=== PATIENT | female | born 1980 | race Caucasian/White ===

== ENCOUNTER 2017-04-17 10:54 | Emergency (ER) | payer MEDICAID ==
[~2017-04-17] VITALS: Ht 162.6 cm; Wt 74.0 kg
[~2017-04-17 10:54] MED LIST: CLIN-79 PO; IBUP-1986 PO; NO HOME MEDS
[2017-04-17 11:47] LABS: BASOPHILS # (AUTO) 0.1 X10'3 (0-0.2); BASOPHILS % (AUTO) 0.8 % (0-1); EOSINOPHILS # (AUTO) 0.2 X10'3 (0-0.9); EOSINOPHILS % (AUTO) 1.6 % (0-6); HEMATOCRIT 30.4 % (35.0-45.0); HEMOGLOBIN 10.7 g/dl (12.0-16.0); LYMPHOCYTES # (AUTO) 2.3 X10'3 (1.1-4.8); LYMPHOCYTES % (AUTO) 16.9 % (21-51); MEAN CORPUSCULAR HEMOGLOBIN 28.8 PG (27.0-31.0); MEAN CORPUSCULAR HGB CONC 35.2 % (33.0-36.5); MEAN CORPUSCULAR VOLUME 81.9 FL (78-98); MEAN PLATELET VOLUME 7.9 FL (7.4-10.4); MONOCYTES # (AUTO) 0.6 X10'3 (0-0.9); MONOCYTES % (AUTO) 4.5 % (2-12); NEUTROPHILS # (AUTO) 10.4 X10'3 (1.8-7.7); NEUTROPHILS % (AUTO) 76.2 % (42-75); PLATELET COUNT 378 X10'3 (140-440); RED BLOOD COUNT 3.72 X10'6 (4.20-5.60); RED CELL DISTRIBUTION WIDTH 14.8 % (11.5-14.5); WHITE BLOOD COUNT 13.7 X10'3 (4.5-11.0)
[2017-04-17] MEDS ORDERED: CEPH-571 PO (11:54)
[2017-04-17 12:09] LABS: ALANINE AMINOTRANSFERASE 36 U/L (12-78); ALBUMIN 2.4 G/DL (3.4-5.0); ALBUMIN/GLOBULIN RATIO 0.5 (1.1-1.5); ALKALINE PHOSPHATASE 189 IU/L (46-116); ANION GAP 9 (8-16); ASPARTATE AMINO TRANSFERASE 69 U/L (10-37); BILIRUBIN,TOTAL 0.3 MG/DL (0.1-1.0); BLOOD UREA NITROGEN 12 MG/DL (7-18); CALCIUM 8.6 MG/DL (8.5-10.1); CHLORIDE 105 MMOL/L (99-107); GLUCOSE 110 MG/DL (70-104); POTASSIUM 4.4 MMOL/L (3.5-5.1); SODIUM 140 MMOL/L (135-145); TOTAL CARBON DIOXIDE 25.6 MMOL/L (24-32); eGFR 81 ML/MIN
[2017-04-17 12:29] VITALS: BP 150/83
== END 2017-04-17 12:00 | disposition home or self-care (01) ==
LOC: ER 10:54
DX: F15.10 Other stimulant abuse, uncomplicated (principal); D64.9 Anemia, unspecified; D72.829 Elevated white blood cell count, unspecified; Z91.011 Allergy to milk products
CPT/HCPCS: 36415; 80053; 85025; 99284

== ENCOUNTER 2018-10-15 03:38 | Emergency (ER) | payer MEDICAID ==
[~2018-10-15] VITALS: Ht 162.6 cm; Wt 62.7 kg
[~2018-10-15 03:38] MED LIST changes: +CEPH-571 PO; -CLIN-79 PO; +CLIN150C8 PO
[2018-10-15 03:44] VITALS: BP 110/68
[2018-10-15] MEDS ORDERED: naproxen 500mg tablet PO ONE (05:00)
[2018-10-15] MEDS ORDERED: NAPR-56 PO (05:04)
== END 2018-10-15 05:58 | disposition home or self-care (01) ==
LOC: ER 03:39
DX: M72.2 Plantar fascial fibromatosis (principal); M79.671 Pain in right foot; Z88.2 Allergy status to sulfonamides; Z91.011 Allergy to milk products; Z79.899 Other long term (current) drug therapy
CPT/HCPCS: 73630; 99283

== ENCOUNTER 2020-07-06 15:32 | Emergency (ER) | payer MEDICAID ==
[~2020-07-06] VITALS: Ht 162.6 cm; Wt 65.7 kg
[2020-07-06] MEDS ORDERED: ketorolac tromethamine 15mg/ml inj. IV ONE (16:50)
[2020-07-06 17:33] LABS: BASOPHILS % (AUTO) 0.3 % (0-1); EOSINOPHILS % (AUTO) 0.1 % (0-6); HEMATOCRIT 42.6 % (35.0-45.0); HEMOGLOBIN 14.1 g/dl (12.0-16.0); LYMPHOCYTES # (AUTO) 1.8 X10'3 (1.1-4.8); LYMPHOCYTES % (AUTO) 14.6 % (21-51); MEAN CORPUSCULAR HEMOGLOBIN 30.5 PG (27.0-31.0); MEAN CORPUSCULAR VOLUME 92.3 FL (78-98); MEAN PLATELET VOLUME 8.1 FL (7.4-10.4); MONOCYTES % (AUTO) 8.5 % (2-12); NEUTROPHILS # (AUTO) 9.2 X10'3 (1.8-7.7); NEUTROPHILS % (AUTO) 76.5 % (42-75); PLATELET COUNT 199 X10'3 (140-440); RED BLOOD COUNT 4.62 X10'6 (4.20-5.60); RED CELL DISTRIBUTION WIDTH 13.5 % (11.5-14.5); WHITE BLOOD COUNT 12.1 X10'3 (4.5-11.0)
--- NOTE | 2020-07-06 17:35 | NUR ---
TO CT WITH TECH
[2020-07-06 17:47] LABS: PARTIAL THROMBOPLASTIN TIME 38 SECONDS (22-32)
[2020-07-06 17:51] LABS: ALANINE AMINOTRANSFERASE 10 U/L (12-78); ALBUMIN 3.4 G/DL (3.4-5.0); ALBUMIN/GLOBULIN RATIO 0.9 (1.1-1.5); ALKALINE PHOSPHATASE 77 IU/L (46-116); ANION GAP 10 (8-16); ASPARTATE AMINO TRANSFERASE 12 U/L (10-37); BILIRUBIN,TOTAL 1.1 MG/DL (0.1-1.0); BLOOD UREA NITROGEN 10 MG/DL (7-18); BUN/CREATININE RATIO 13.2 (6.6-38.0); CALCIUM 8.7 MG/DL (8.5-10.1); CHLORIDE 101 MMOL/L (99-107); CREATININE 0.76 MG/DL (0.40-0.90); GLUCOSE 88 MG/DL (70-104); POTASSIUM 3.9 MMOL/L (3.5-5.1); SODIUM 133 MMOL/L (135-145); TOTAL CARBON DIOXIDE 22.4 MMOL/L (24-32); TOTAL PROTEIN 7.4 G/DL (6.4-8.2); eGFR 85 ML/MIN
[2020-07-06 18:27] LABS: HCG SERUM QL NEGATIVE
[2020-07-06 18:28] VITALS: BP 111/59
[2020-07-06] MEDS ORDERED: IBUP-1984 PO (18:48)
== END 2020-07-06 19:13 | disposition home or self-care (01) ==
LOC: ER 15:32
DX: S00.93XA Contusion of unspecified part of head, initial encounter (principal); R51.9 Headache, unspecified; R11.10 Vomiting, unspecified; Z87.440 Personal history of urinary (tract) infections; Z88.2 Allergy status to sulfonamides; Z91.011 Allergy to milk products; Z79.2 Long term (current) use of antibiotics; Z79.899 Other long term (current) drug therapy; W19.XXXA Unspecified fall, initial encounter; Y93.89 Activity, other specified; Y92.89 Other specified places as the place of occurrence of the external cause; Y99.8 Other external cause status
CPT/HCPCS: 36415; 70450; 72125; 80053; 84703; 85025; 85610; 85730; 96374; 99285; J1885; 93005

== ENCOUNTER 2021-08-03 08:49 | Emergency (ER) | payer MEDICAID ==
[~2021-08-03] VITALS: Ht 162.6 cm; Wt 63.6 kg
[2021-08-03 08:53] VITALS: BP 122/59
[2021-08-03] MEDS ORDERED: HYDROcodone/acetaminophen 10/325mg tab PO ONE (10:40)
[2021-08-03] MEDS ORDERED: sulfamethoxazole/trimethoprim DS (800/160mg) tablet PO ONE (10:40)
[2021-08-03] MEDS ORDERED: DOXY150T5 PO (10:44)
[2021-08-03] MEDS ORDERED: DOXYCYCLINE 100MG CAPSULE PO STA (10:45)
== END 2021-08-03 10:56 | disposition home or self-care (01) ==
LOC: ER 08:49
DX: L02.416 Cutaneous abscess of left lower limb (principal); Z87.440 Personal history of urinary (tract) infections; Z88.2 Allergy status to sulfonamides; Z91.011 Allergy to milk products; Z79.2 Long term (current) use of antibiotics; Z79.899 Other long term (current) drug therapy
CPT/HCPCS: 10061; 87070; 87077; 87186; 99284

== ENCOUNTER 2023-09-01 13:29 | Emergency (ER) | payer BC, MEDICAID ==
[~2023-09-01] VITALS: Ht 162.6 cm; Wt 69.3 kg
[~2023-09-01 13:29] MED LIST changes: +CLIN-214 PO; -CLIN150C8 PO
[2023-09-01 13:32] VITALS: BP 112/79; PULSE 104; TEMP 98; O2SAT 95
[2023-09-01 14:02] LABS: BILIRUBIN,URINE NEGATIVE (Neg); CLARITY,URINE TURBID (Clear); COLOR,URINE YELLOW (Yellow); GLUCOSE, URINE NEGATIVE (Neg); KETONES,URINE NEGATIVE (Neg); LEUKOCYTE ESTERASE ,URINE LARGE (Neg); NITRITES, URINE POSITIVE (Neg); OCCULT BLOOD,URINE MODERATE (Neg); PROTEIN,URINE 100 mg/dl (Neg)
[2023-09-01 14:03] LABS: URINE HCG NEGATIVE (NEG)
[2023-09-01 14:09] LABS: UA COLLECTION TYPE CLN CATCH MIDSTREAM
[2023-09-01 14:16] LABS: BACTERIA,URINE 1+ /HPF (Neg); RBC,URINE TNTC /HPF (0-2); SQUAMOUS EPITHELIAL CELL,UR FEW /LPF (FEW); WBC,URINE TNTC /HPF (0-4)
[2023-09-01 14:18] LABS: WBC CLUMPS,URINE MODERATE /HPF (NEGATIVE)
[2023-09-01] MEDS ORDERED: diatr meglu/diatrizoate 30ml oral sol.-(3 dose) bottle ONE (14:33)
[2023-09-01 15:11] VITALS: RESP 14
[2023-09-01 15:20] LABS: BASOPHILS % (AUTO) 0.4 % (0-1); EOSINOPHILS # (AUTO) 0.1 X10'3 (0-0.9); HEMOGLOBIN 15.5 g/dl (12.0-16.0); LYMPHOCYTES # (AUTO) 1.9 X10'3 (1.1-4.8); MEAN CORPUSCULAR HEMOGLOBIN 31.3 PG (27.0-31.0); MEAN CORPUSCULAR HGB CONC 33.7 g/dL (33.0-36.5); MEAN CORPUSCULAR VOLUME 92.8 FL (78-98); MEAN PLATELET VOLUME 8.1 FL (7.4-10.4); MONOCYTES # (AUTO) 0.5 X10'3 (0-0.9); MONOCYTES % (AUTO) 6.5 % (2-12); NEUTROPHILS # (AUTO) 5.2 X10'3 (1.8-7.7); NEUTROPHILS % (AUTO) 68.1 % (42-75); PLATELET COUNT 193 X10'3 (140-440); RED BLOOD COUNT 4.96 X10'6 (4.20-5.60); RED CELL DISTRIBUTION WIDTH 12.5 % (11.5-14.5); WHITE BLOOD COUNT 7.7 X10'3 (4.5-11.0)
[2023-09-01 16:07] LABS: ALANINE AMINOTRANSFERASE 15 U/L (12-78); ALBUMIN 3.9 G/DL (3.4-5.0); ALKALINE PHOSPHATASE 61 IU/L (46-116); ANION GAP 11 (8-16); BILIRUBIN,TOTAL 0.7 MG/DL (0.1-1.0); BLOOD UREA NITROGEN 12 MG/DL (7-18); BUN/CREATININE RATIO 16.7 (10.0-20.0); CALCIUM 9.2 MG/DL (8.5-10.1); CHLORIDE 102 MMOL/L (99-107); CREATININE 0.72 MG/DL (0.40-0.90); GLUCOSE 69 MG/DL (70-104); LIPASE 22 U/L (16-77); SODIUM 137 MMOL/L (135-145); TOTAL CARBON DIOXIDE 24.2 MMOL/L (24-32); eCRCL 88 ML/MIN; eGFR 89 ML/MIN
[2023-09-01 16:08] LABS: ASPARTATE AMINO TRANSFERASE 15 U/L (10-37); POTASSIUM 4.2 MMOL/L (3.5-5.1)
[2023-09-01] MEDS ORDERED: PHEN-786 PO (16:20)
[2023-09-01] MEDS ORDERED: NITR100C6 PO (16:20)
== END 2023-09-01 16:30 | disposition home or self-care (01) ==
LOC: ER 13:29
DX: N39.0 Urinary tract infection, site not specified (principal); K59.00 Constipation, unspecified; F17.200 Nicotine dependence, unspecified, uncomplicated; Z72.89 Other problems related to lifestyle; Z88.8 Allergy status to other drugs, medicaments and biological substances; Z79.899 Other long term (current) drug therapy; Z79.2 Long term (current) use of antibiotics
CPT/HCPCS: 36415; 80053; 81001; 81025; 83690; 85025; 87077; 87088; 87186; 99283; Q9963